=== PATIENT | female | born 1985 | race Caucasian/White ===

== ENCOUNTER 2016-10-11 22:04 | Emergency (ER) | payer BC, MEDICAID ==
--- NOTE | 2016-10-11 23:57 | ER Document Report ---
ED Medical Screen (RME) - General Stated Complaint: POST SURGICAL COMPLICATION Mode of Arrival: Ambulatory Information source: Patient Notes: 31 y/o F presents to ED concerned for possible post-op complication. Reports had vertical sleeve gastrectomy procedure 12 days ago and reports noted drainage and bleeding from surgical wounds over the last 2 days. Denies fever, pain, n/v. I have greeted and performed a rapid initial assessment of this patient. A comprehensive ED assessment and evaluation of the patient, analysis of test results and completion of the medical decision making process will be conducted by additional ED providers. TRAVEL OUTSIDE OF THE [place] IN LAST 30 DAYS: No - Related Data Allergies/Adverse Reactions: No Known Allergies Allergy (Verified 12/16/15 15:17) Past Medical History - Social History Family history: Reviewed & Not Pertinent - Past Medical History Cardiac Medical History: Reports: Hx Hypertension Pulmonary Medical History: Reports: Hx Asthma - EXERCISE INDUCED Denies: Hx Tuberculosis Neurological Medical History: Denies: Hx Seizures Endocrine Medical History: Reports: Hx Diabetes Mellitus Type 2, Hx Hypothyroidism Renal/ Medical History: Reports: Hx Ovarian Cysts Psychiatric Medical History: Reports: Hx Depression Past Surgical History: Reports: Hx Section, Hx Cholecystectomy. Denies : Hx Pacemaker - Immunizations Hx Diphtheria, Pertussis, Tetanus Vaccination: No Physical Exam - General General appearance: Appears well, Alert In distress: None - Respiratory Respiratory status: No respiratory distress - Abdominal Inspection: Fresh incision Tenderness: Nontender
--- NOTE | 2016-10-12 02:49 | ER Document Report ---
ED Skin Rash/Insect Bite/Abscs - General Chief Complaint: Post Surgical Bleeding Stated Complaint: POST SURGICAL COMPLICATION Mode of Arrival: Ambulatory Information source: Patient Notes: 31-year-old female presents to the emergency department complaining of possible postop wound complication. Patient reports had vertical sleeve gastrectomy procedure 12 days ago. States 2 days ago noted one of her laparoscopic incision wounds superficially opened and subsequently another one did the same today. States has noted crusting and bleeding from sites. Denies pain, fever, swelling, redness, warmth, or n/v. TRAVEL OUTSIDE OF THE [place] IN LAST 30 DAYS: No - HPI Onset: Yesterday Onset/Duration: Persistent Quality of pain: No pain Severity: Mild Pain Level: Denies Skin Temperature: Warm Similar symptoms previously: No Recently seen / treated by doctor: Yes - Related Data Allergies/Adverse Reactions: No Known Allergies Allergy (Verified 10/11/16 23:57) Past Medical History - General Information source: Patient - Social History Smoking Status: Never Smoker Chew tobacco use (# tins/day): No Frequency of alcohol use: None Drug Abuse: None Lives with: Family Family History: Reviewed & Not Pertinent Patient has suicidal ideation: No Patient has homicidal ideation: No - Past Medical History Cardiac Medical History: Reports: Hx Hypertension Pulmonary Medical History: Reports: Hx Asthma - EXERCISE INDUCED Denies: Hx Tuberculosis Neurological Medical History: Denies: Hx Seizures Endocrine Medical History: Reports: Hx Diabetes Mellitus Type 2, Hx Hypothyroidism Renal/ Medical History: Reports: Hx Ovarian Cysts. Denies: Hx Peritoneal Dialysis Psychiatric Medical History: Reports: Hx Depression Past Surgical History: Reports: Hx Section, Hx Cholecystectomy. Denies : Hx Pacemaker - Immunizations Hx Diphtheria, Pertussis, Tetanus Vaccination: Yes Hx Pneumococcal Vaccination: 04/09/14 Review of Systems - Review of Systems Constitutional: No symptoms reported EENT: No symptoms reported Cardiovascular: No symptoms reported Respiratory: No symptoms reported Gastrointestinal: No symptoms reported Genitourinary: No symptoms reported Female Genitourinary: No symptoms reported Musculoskeletal: No symptoms reported Skin: See HPI Hematologic/Lymphatic: No symptoms reported Neurological/Psychological: No symptoms reported -: Yes All other systems reviewed and negative Physical Exam - Vital signs Vitals: Temp Pulse Resp BP Pulse Ox 97.2 F 86 18 139/96 H 100 10/11/16 23:51 10/11/16 23:51 10/11/16 23:51 10/11/16 23:51 10/11/16 23:51 Interpretation: Normal - General General appearance: Appears well, Alert In distress: None - HEENT Head: Normocephalic, Atraumatic Eyes: Normal Pupils: PERRL - Respiratory Respiratory status: No respiratory distress Chest status: Nontender Breath sounds: Normal Chest palpation: Normal - Cardiovascular Rhythm: Regular Heart sounds: Normal auscultation Murmur: No Pulses: Normal: Radial Normal capillary refill: Yes - Abdominal Inspection: Fresh incision - Pt has multiple surgical incisions that are well healed. Has one horizontal incision approximately 3 cm in legth which appears to have superficially opened. There is some crusting around wound however there is no erythema, drainage, induration, tenderness, or warmth. Also has a vertical laparoscopic incision which also appears to have superficially opened. Has small amount of dried blood around site with no active bleeding. No tenderness, erythema, warmth, induration, or drainage., Healed incision, Morbidly Obese. No: Normal, Caput medussa, Gravid female, Striae, Wounds, Obese , Other Distension: No distension Bowel sounds: Normal Tenderness: Nontender Organomegaly: No organomegaly - Back Back: Normal, Nontender - Extremities General upper extremity: Normal inspection, Nontender, Normal color, Normal ROM , Normal temperature General lower extremity: Normal inspection, Nontender, Normal color, Normal ROM , Normal temperature, Normal weight bearing - Neurological Neuro grossly intact: Yes Cognition: Normal Orientation: AAOx4 [place] Coma Scale Eye Opening: Spontaneous Erika Coma Scale Verbal: Oriented Erika Coma Scale Motor: Obeys Commands [place] Coma Scale Total: 15 Speech: Normal Motor strength normal: LUE, RUE, LLE, RLE Sensory: Normal - Psychological Associated symptoms: Normal affect, Normal mood - Skin Skin Temperature: Warm Skin Moisture: Dry Skin Color: Normal Course - Re-evaluation Re-evalutation: 10/12/16 02:49 Pt hemodynamically stable, in no distress, afebrile, non-toxic, and appears well hydrated. No suggestion of wound infection or active bleeding at this time. Discussed at length home care of superficially opened surgical wounds and monitoring for signs of infection and other complications. Pt appears stable for discharge and agrees with home care, follow-up, and ED return precautions. Pt presentation, findings, ED care, and plan discussed with ED physician Dr. Guerra who concurs with evaluation and plan. - Vital Signs Vital signs: Temp Pulse Resp BP Pulse Ox 97.8 F 84 20 134/83 H 100 10/12/16 03:13 10/12/16 03:13 10/12/16 03:13 10/12/16 03:13 10/12/16 03:13 Discharge - Discharge Clinical Impression: Postoperative external wound disruption Qualifiers: Encounter type: initial encounter Qualified Code(s): T81.31XA - Disruption of external operation (surgical) wound, not elsewhere classified, initial encounter Condition: Stable Disposition: HOME, SELF-CARE Additional Instructions: Dressing Instructions for Open Wounds To dress the wound, first put on a thin coating of antibiotic ointment ( for example, Polysporin). Put the ointment on the wound itself, avoiding it on the uninjured skin. Apply a non-stick pad such as Telfa or Adaptic. If padding is needed, apply gauze either as a pad or roll (Kerlix). Dressings on extremities are best secured with a roll bandage (Bebo). Apply just enough tape to keep the bandage in place. In general, all bandages should be replaced at least every other day. If the wound is open and draining, daily dressing changes are necessary. Dressings should also be replaced if they become wet, blood-soaked, soaked with drainage, or dirty. Delayed Wound Closure Watch for signs of wound infection, such as increasing pain, swelling and spreading redness, or foul-smelling drainage. Be sure to follow up for your continuing care. Contact us immediately if you have any problems. Follow-up with your surgeon and primary care provider as discussed. Return to the Emergency Department for any worsening symptoms or concerns. Forms: Elevated Blood Pressure Referrals: LIZY RICO, ANNE [Primary Care Provider] - Follow up tomorrow
[2016-10-12 03:40] VITALS: BP 134/83
== END 2016-10-12 03:13 | disposition home or self-care (01) ==
LOC: ER 22:04
DX: T81.31XA Disruption of external operation (surgical) wound, not elsewhere classified, initial encounter (principal); Y83.8 Other surgical procedures as the cause of abnormal reaction of the patient, or of later complication, without mention of misadventure at the time of the procedure; Z98.84 Bariatric surgery status; I10 Essential (primary) hypertension; J45.909 Unspecified asthma, uncomplicated; E11.9 Type 2 diabetes mellitus without complications
CPT/HCPCS: 99283

== ENCOUNTER 2017-02-27 03:53 | Emergency (ER) | payer BC ==
[2017-02-27] MEDS ORDERED: LIDOCAINE 1% INJ-PF (10 MG/ML) 30 ML SDV INJ ONE (06:34)
--- NOTE | 2017-02-27 07:16 | RADIOLOGY REPORT (SQ) ---
EXAM DESCRIPTION: TOE RIGHT COMPLETED DATE/TIME: 02/27/2017 7:08 am REASON FOR STUDY: fall laceration COMPARISON: None. NUMBER OF VIEWS: Three views. TECHNIQUE: AP, lateral, and oblique images acquired of the right first toe. LIMITATIONS: None. FINDINGS: MINERALIZATION: Normal. BONES: No acute fracture or dislocation. No worrisome bone lesions. JOINTS: No effusions. SOFT TISSUES: Laceration noted along the dorsal surface of the great toe. No radiopaque foreign body identified. OTHER: No other significant finding. IMPRESSION: No acute fracture or dislocation identified. Soft tissue defect seen along the dorsal a spect of the great toe. No radiopaque foreign body. COMMENT: SITE OF TRAUMA/COMPLAINT MARKED/STAMP COMPLETED: NO. TECHNICAL DOCUMENTATION: JOB ID: [id number] [employer]- All Rights Reserved
--- NOTE | 2017-02-27 07:26 | ER Document Report ---
ED General - General Chief Complaint: Laceration Stated Complaint: FALL/BOG TOE LACERATION Time Seen by Provider: 02/27/17 05:50 Mode of Arrival: Ambulatory Information source: Patient Notes: 32-year-old female tetanus up-to-date presents after a fall in the hot tub striking her toe. Patient notes laceration to the right foot great toe denies any other injuries TRAVEL OUTSIDE OF THE [place] IN LAST 30 DAYS: No - HPI Onset: Just prior to arrival Onset/Duration: Sudden Quality of pain: No pain Severity: Mild Pain Level: Denies Associated symptoms: None Exacerbated by: Denies Relieved by: Denies Similar symptoms previously: No Recently seen / treated by doctor: No - Related Data Allergies/Adverse Reactions: No Known Allergies Allergy (Verified 10/11/16 23:57) Past Medical History - Social History Smoking Status: Never Smoker Cigarette use (# per day): No Chew tobacco use (# tins/day): No Smoking Education Provided: No Frequency of alcohol use: Occasional Drug Abuse: None Family History: Reviewed & Not Pertinent Patient has suicidal ideation: No Patient has homicidal ideation: No - Past Medical History Cardiac Medical History: Reports: Hx Hypertension - previously had HTN Pulmonary Medical History: Reports: Hx Asthma - EXERCISE INDUCED Denies: Hx Tuberculosis Neurological Medical History: Denies: Hx Seizures Endocrine Medical History: Reports: Hx Diabetes Mellitus Type 2 - previously had DMII, Hx Hypothyroidism Renal/ Medical History: Reports: Hx Ovarian Cysts. Denies: Hx Peritoneal Dialysis Psychiatric Medical History: Reports: Hx Depression Past Surgical History: Reports: Hx Section - x2, Hx Cholecystectomy. Denies: Hx Pacemaker - Immunizations Hx Diphtheria, Pertussis, Tetanus Vaccination: Yes Hx Pneumococcal Vaccination: 04/09/14 Review of Systems - Review of Systems Notes: REVIEW OF SYSTEMS: CONSTITUTIONAL : Denies fever, chills, or sweats. Denies recent illness. EENT: Denies eye, ear, throat, or mouth pain or symptoms. Denies nasal or sinus congestion or discharge. Denies throat, tongue, or mouth swelling or difficulty swallowing. CARDIOVASCULAR: Denies chest pain. Denies palpitations or racing or irregular heart beat. Denies ankle edema. RESPIRATORY: Denies cough, cold, or chest congestion. Denies shortness of breath, difficulty breathing, or wheezing. GASTROINTESTINAL: Denies abdominal pain or distention. Denies nausea, vomiting , or diarrhea. Denies blood in vomitus, stools, or per rectum. Denies black, tarry stools. Denies constipation. GENITOURINARY: Denies difficulty urinating, painful urination, burning, frequency, blood in urine, or discharge. FEMALE GENITOURINARY: Denies vaginal bleeding, heavy or abnormal periods, irregular periods. Denies vaginal discharge or odor. MUSCULOSKELETAL: Denies back or neck pain or stiffness. Denies joint pain or swelling. SKIN: Laceration toe HEMATOLOGIC : Denies easy bruising or bleeding. LYMPHATIC: Denies swollen, enlarged glands. NEUROLOGICAL: Denies confusion or altered mental status. Denies passing out or loss of consciousness. Denies dizziness or lightheadedness. Denies headache. Denies weakness or paralysis or loss of use of either side. Denies problems with gait or speech. Denies sensory loss, numbness, or tingling. Denies seizures. PSYCHIATRIC: Denies anxiety or stress. Denies depression, suicidal ideation, or homicidal ideation. ALL OTHER SYSTEMS REVIEWED AND NEGATIVE. PHYSICAL EXAMINATION: GENERAL: Well-appearing, well-nourished and in no acute distress. HEAD: Atraumatic, normocephalic. EYES: Pupils equal round and reactive to light, extraocular movements intact, conjunctiva are normal. ENT: Nares patent, oropharynx clear without exudates. Moist mucous membranes. NECK: Normal range of motion, supple without lymphadenopathy LUNGS: Breath sounds clear to auscultation bilaterally and equal. No wheezes rales or rhonchi. HEART: Regular rate and rhythm without murmurs ABDOMEN: Soft, nontender, nondistended abdomen. No guarding, no rebound. No masses appreciated. Female : deferred Musculoskeletal: Normal range of motion, no pitting or edema. No cyanosis. NEUROLOGICAL: Cranial nerves grossly intact. Normal speech, normal gait. Normal sensory, motor exams PSYCH: Normal mood, normal affect. SKIN: Ecchymosis of the left fatima in 3 different areas, no laceration on the left, laceration of the right great toe in the horizontal aspect measuring 4.4 cm Dictation was performed using [employer] for [employer] voice recognition software Physical Exam - Vital signs Vitals: Temp Pulse Resp BP Pulse Ox 98.4 F 82 18 144/84 H 99 02/27/17 04:16 02/27/17 04:16 02/27/17 04:16 02/27/17 04:16 02/27/17 04:16 Course - Re-evaluation Re-evalutation: 02/27/17 07:32 Digital nerve block performed area was cleansed extensively, 5 sutures were placed patient will be started on antibiotics given that she was in the hot tub when this occurred After performing a Medical Screening Examination, I estimate there is LOW risk for OPEN FRACTURE, COMPARTMENT SYNDROME, TENDON RUPTURE, ACUTE NEUROVASCULAR INJURY, or RETAINED FOREIGN BODY, thus I consider the discharge disposition reasonable. Also, there is no evidence or peritonitis, sepsis, or toxicity. I have reevaluated this patient multiple times and no significant life threatening changes are noted. The patient and I have discussed the diagnosis and risks, and we agree with discharging home with close follow-up with the understanding that symptoms and presentations can change. We also discussed returning to the Emergency Department immediately if new or worsening symptoms occur. We have discussed the symptoms which are most concerning (e.g., changing or worsening pain, fever, numbness, weakness, cool or painful digits) that necessitate immediate return. - Vital Signs Vital signs: Temp Pulse Resp BP Pulse Ox 98.4 F 82 18 144/84 H 99 02/27/17 04:16 02/27/17 04:16 02/27/17 04:16 02/27/17 04:16 02/27/17 04:16 - Diagnostic Test Radiology reviewed: Image reviewed, Reports reviewed - No acute fracture image given to patient Procedures - Laceration/Wound Repair Right Great toe Time completed: 07:15 Wound length (cm): 4.4 Wound's Depth, Shape: Superficial Laceration pre-procedure: Sterile PPE donned, Sterile drapes applied, Shur- Clens applied Anesthetic type: 1% Lidocaine Volume Anesthetic (mLs): 10 Wound explored: Clean, No foreign body removed Irrigated w/ Saline (mLs): 500 Wound Debrided: Minimal Wound Repaired With: Sutures Suture Size/Type: 5:0, Ethilon Number of Sutures: 5 Layer Closure?: No Post-procedure wound care: Sterile dressing applied Post-procedure NV exam normal: Yes Complications: No - Additional Procedures digital nerve block Time performed: 07:00 - using 10 cc of lido without epi complete nerve block no complcation Discharge - Discharge Clinical Impression: Laceration Toe injury Qualifiers: Encounter type: initial encounter Laterality: right Qualified Code(s): S99.921A - Unspecified injury of right foot, initial encounter Condition: Stable Disposition: HOME, SELF-CARE Instructions: Antibiotic Ointment Protection ([facility]), Laceration Care ([facility]) Additional Instructions: follow up in 1 week for reevaluation or return immediately if there are any other concerns. Prescriptions: Clindamycin HCl 300 mg PO Q6 #40 capsule Referrals: ARDEN FRAZIER MD [Primary Care Provider] - Follow up as needed
[2017-02-27 07:49] VITALS: BP 138/89
== END 2017-02-27 07:40 | disposition home or self-care (01) ==
LOC: ER 03:53
PROC: 0HQMXZZ Repair Right Foot Skin, External Approach (ICD-10-PCS; principal; 2017-02-27)
DX: S91.111A Laceration without foreign body of right great toe without damage to nail, initial encounter (principal); S80.12XA Contusion of left lower leg, initial encounter; W19.XXXA Unspecified fall, initial encounter; E11.9 Type 2 diabetes mellitus without complications; I10 Essential (primary) hypertension; J45.909 Unspecified asthma, uncomplicated
CPT/HCPCS: 99283; 73660; 12002; J3490

== ENCOUNTER 2018-08-16 07:42 | Emergency (ER) | payer BC ==
--- NOTE | 2018-08-16 08:18 | ER Document Report ---
ED General - General Chief Complaint: Skin Sore(s) Stated Complaint: PAIN IN ARM AND SHOULDER Time Seen by Provider: 08/16/18 08:17 Notes: Patient is a 33-year-old female that presents to the emergency department for chief complaint of lumps under her right armpit. Patient states that she had flulike symptoms approximately 2 weeks ago, and at that time she felt a lump under her right armpit and axilla, but then felt another one today, which concerned her. She states that they are sore, and she has some aching associated, currently rates the pain as a 2 out of 10, nonradiating. Denies any injuries to the shoulder otherwise. She denies having performed a self breast exam in the past, she reports she does have a history of breast cancer in the family, but not her mother but all of her aunts. She denies noting any fevers, chills, night sweats, nausea, vomiting, chest pain or shortness of breath. She also secondarily complains of her right ear feeling full, but denies having any tinnitus, vertigo, fevers or chills. Past Medical History: Hypothyroidism Past Surgical History: , cholecystectomy Social History: Denies tobacco, alcohol or drug use. Family History: Reviewed and noncontributory for presenting illness Allergies: Reviewed, see documented allergy list. REVIEW OF SYSTEMS: Other than noted above, the 12 point review of systems was reviewed with the patient and were negative, all pertinent findings are included in the HPI. PHYSICAL EXAMINATION: Vital signs reviewed, nursing noted reviewed. GENERAL: Well-appearing, well-nourished and in no acute distress. HEAD: Atraumatic, normocephalic. EYES: Eyes appear normal, extraocular movements intact, sclera anicteric, conjunctiva are normal. ENT: nares patent, oropharynx clear without exudates. Moist mucous membranes. Right TM, does have a middle ear effusion, without injection, erythema, or bulging, left TM appears normal NECK: Normal range of motion, supple without lymphadenopathy LUNGS: Breath sounds clear to auscultation bilaterally and equal. No wheezes rales or rhonchi. HEART: Regular rate and rhythm without murmurs ABDOMEN: Soft, nontender, normoactive bowel sounds. No rebound, guarding, or rigidity. No masses appreciated. EXTREMITIES: good range of motion, no pitting or edema. Under the right axilla, there are 2 palpable nodules, these were evaluated under ultrasound, 1 appeared to be more cystic, where the other appeared to be either a lymph node, or early abscess, with hyperechoic center, mild tenderness to palpation. The rest of the extremity exam is grossly unremarkable. NEUROLOGICAL: No focal neurological deficits. Moves all extremities spontaneously Motor and sensory grossly intact on exam. PSYCH: Normal mood, normal affect. SKIN: Warm, Dry, normal turgor, no rashes or lesions noted on exposed skin TRAVEL OUTSIDE OF THE [place] IN LAST 30 DAYS: No - Related Data Allergies/Adverse Reactions: No Known Allergies Allergy (Verified 08/16/18 07:42) Past Medical History - Social History Smoking Status: Unknown if Ever Smoked Family History: Reviewed & Not Pertinent Patient has suicidal ideation: No Patient has homicidal ideation: No - Past Medical History Cardiac Medical History: Reports: Hx Hypertension - previously had HTN Pulmonary Medical History: Reports: Hx Asthma - EXERCISE INDUCED Denies: Hx Tuberculosis Neurological Medical History: Denies: Hx Seizures Endocrine Medical History: Reports: Hx Diabetes Mellitus Type 2 - previously had DMII, Hx Hypothyroidism Renal/ Medical History: Reports: Hx Ovarian Cysts. Denies: Hx Peritoneal Dialysis Psychiatric Medical History: Reports: Hx Depression Past Surgical History: Reports: Hx Section - x2, Hx Cholecystectomy. Denies: Hx Pacemaker - Immunizations Hx Diphtheria, Pertussis, Tetanus Vaccination: Yes Hx Pneumococcal Vaccination: 04/09/14 Physical Exam - Vital signs Vitals: Temp Pulse Resp BP Pulse Ox 97.9 F 80 16 148/94 H 98 08/16/18 07:46 08/16/18 07:46 08/16/18 07:46 08/16/18 07:46 08/16/18 07:46 Course - Re-evaluation Re-evalutation: Patient seen and examined, vital signs reviewed, on my exam, the patient was noted to have 2 nodules in her right axilla, and a mild middle ear effusion on the right, under ultrasound, these 2 nodules appear different, one was more cystic appearing where the other peers more solid more consistent with a mildly enlarged lymph node, they were mildly tender to palpate, I advised the patient to follow-up with HYDROGEOLOGIST, for formal breast exam, and likely will need breast ultrasound versus mammogram, given family history of breast cancer, advised and encouraged the patient to follow-up on this, I also prescribed her antibiotic, for possible early abscess, as the one was more cystic appearing. Patient was agreeable to this plan of care and discharged home. - Vital Signs Vital signs: Temp Pulse Resp BP Pulse Ox 98.7 F 71 16 136/74 H 98 08/16/18 09:14 08/16/18 09:14 08/16/18 09:14 08/16/18 09:14 08/16/18 09:14 Discharge - Discharge Clinical Impression: Axillary abscess, Lymph node enlargement Middle ear effusion Qualifiers: Laterality: right Qualified Code(s): H65.91 - Unspecified nonsuppurative otitis media, right ear Condition: Stable Disposition: HOME, SELF-CARE Instructions: Abscess ([facility]) Additional Instructions: Please follow-up with the HYDROGEOLOGIST group in 2-3 days to have your lymph node evaluated and have a breast exam. Prescriptions: RX: Cephalexin Monohydrate [Keflex 500 mg Capsule] 500 mg PO Q8 7 Days #21 capsule Forms: Return to Work Referrals: ARDEN FRAZIER MD [COMMUNITY BASED STAFF] - Follow up as needed [facility] [Provider Group] - Follow up in 3-5 days
[2018-08-16 09:15] VITALS: BP 136/74
== END 2018-08-16 09:14 | disposition home or self-care (01) ==
LOC: ER 07:42
DX: L02.411 Cutaneous abscess of right axilla (principal); H65.91 Unspecified nonsuppurative otitis media, right ear; R59.9 Enlarged lymph nodes, unspecified; M79.601 Pain in right arm; H92.01 Otalgia, right ear; I10 Essential (primary) hypertension; J45.909 Unspecified asthma, uncomplicated; E11.9 Type 2 diabetes mellitus without complications
CPT/HCPCS: 99283